=== PATIENT | male | born 1990 | race African-American/Black ===

== ENCOUNTER 2017-09-02 23:52 | Emergency (ER) | payer OTHER ==
[2017-09-03] MEDS ORDERED: KETOROLAC TROMETHAMINE INJ/PF 30 MG/1 ML SDV IM ONE (01:16)
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
[2017-09-03 02:45] VITALS: BP 124/84
== END 2017-09-03 02:44 | disposition home or self-care (01) ==
LOC: ER 23:52
DX: S20.211A Contusion of right front wall of thorax, initial encounter (principal); M25.561 Pain in right knee; V43.52XA Car driver injured in collision with other type car in traffic accident, initial encounter
CPT/HCPCS: 99283; 96372; 73564; 71101; J1885